=== PATIENT | female | born 1970 | race Caucasian/White ===

== ENCOUNTER 2018-05-09 14:21 | Emergency (ER) | payer SELFPAY ==
[~2018-05-09] VITALS: Ht 157.5 cm; Wt 52.2 kg
[2018-05-09 14:24] VITALS: BP 133/80
[2018-05-09] MEDS ORDERED: ACETAMINOPHEN 325 MG TAB PO ONE (14:25)
--- NOTE | 2018-05-09 14:30 | NUR ---
PT TAKEN TO BED 1.
[2018-05-09] MEDS ORDERED: ACETAMINOPHEN 325 MG TAB ONE (14:31)
--- NOTE | 2018-05-09 14:46 | NUR ---
PT COMES TO ER WITH MULTIPLE COMPLIANTS, SOB THAT STARTED 2 DAYS AGO. DENIES CHEST PAIN AT THIS TIME. PT EMOTIONAL, CRYING, RESTLESS IN BED, AFRAID TO HAVE STAFF "STICK NEEDLE" VERBALIZES ANXIETY , SOB MORE WITH MINIAL EXERTION. PT TACHYPNIC AT 28/MIN, COARSE LUNG SOUNDS TO RLL. PT REPORTS FEVERS/CHILLS. NO N/V/D. ALSO REPORTS LOWER BACK PAIN, WITH NO RECENT INJURY. DENIES NUMBNESS/TINGLING. SKIN W/D/I.
[2018-05-09] MEDS ORDERED: methylPREDNISolone SS 125 MG/2 ML VIAL IVP ONE (15:00)
[2018-05-09] MEDS ORDERED: IPRATROPIUM 0.02% 0.5 MG/2.5 ML NEBU INH ONE ×3 (15:00→15:15)
[2018-05-09] MEDS ORDERED: ALBUTEROL 0.083% 2.5 MG/3 ML NEBU INH ONE ×3 (15:00→15:15)
[2018-05-09] MEDS ORDERED: AZITHROMYCIN 500 MG in DEXTROSE 5% 250 ML IV ONE (15:00)
[2018-05-09] MEDS ORDERED: cefTRIAXone 1,000 MG in DEXT 5% MINI-BAG PLUS 50 ML IV ONE (15:00)
[2018-05-09] MEDS ORDERED: cefTRIAXone 1,000 MG VIAL ONE (15:20)
[2018-05-09] MEDS ORDERED: AZITHROMYCIN 500 MG INJ VIAL IV ONE (15:20)
[2018-05-09 15:37] LABS: HEMATOCRIT 24.6 % (36-48); HEMOGLOBIN 7.5 g/dL (12.0-16.0); MEAN CORPUSCULAR HEMOGLOBIN 19 pg (27-31); MEAN CORPUSCULAR HGB CONC 30 g/dL (33-37); MEAN CORPUSCULAR VOLUME 63.9 fL (80-94); PLATELET COUNT (AUTO) 164 K/uL (140-450); RED BLOOD CELL COUNT(AUTO) 3.86 MIL/uL (4.20-5.40); RED CELL DISTRIBUTION WIDTH 18.7 % (11.6-13.7); WHITE BLOOD COUNT (AUTO) 13.2 K/uL (4.8-10.8)
[2018-05-09 16:02] LABS: ANION GAP 15.2 (8-16); CARBON DIOXIDE 23.5 mmol/L (21-32); CREATININE 0.8 mg/dL (0.6-1.3); POTASSIUM 3.7 mmol/L (3.5-5.1)
[2018-05-09 16:11] LABS: ALBUMIN 3.2 g/dL (3.4-5.0); TOTAL BILIRUBIN 0.5 mg/dL (0.0-1.0)
[2018-05-09 16:12] LABS: EOSINOPHILS % (MANUAL) 3 % (0-4); LYMPHOCYTES % (MANUAL) 3 % (20-46); MONOCYTES % (MANUAL) 1 % (5-12)
--- NOTE | 2018-05-09 16:36 | NUR ---
IV ANBX INFUSING WELL TO RT AC, INFUSING WELL. PT REPORTS MILD RELIEF AFTER MEDS GIVEN.
--- NOTE | 2018-05-09 17:59 | NUR ---
PT WITH EYES CLOSED, IN NAD. RESP EVEN AND UNLABORED. DENIES ANY PAIN, SOB AT THIS TIME. VSS, WILL CONT TO MONITOR FOR ANY ADVERSE SIDE EFFECTS.
[2018-05-09 18:23] VITALS: BP 129/77
== END 2018-05-09 18:23 | disposition home or self-care (01) ==
LOC: MED 14:21
DX: J45.901 Unspecified asthma with (acute) exacerbation (principal); F12.90 Cannabis use, unspecified, uncomplicated; R10.2 Pelvic and perineal pain; D64.9 Anemia, unspecified
CPT/HCPCS: 36600; 71045; 80053; 82803; 84484; 85025; 87040; 87186; 93005; 94640; 96365; 96367; 96375; 99285; J0456; J0696; J2930; J7613; J7644

== ENCOUNTER 2018-08-14 18:25 | Emergency (ER) | payer MEDICAID ==
[~2018-08-14] VITALS: Ht 157.5 cm; Wt 54.4 kg
[2018-08-14 18:33] VITALS: BP 127/80
--- NOTE | 2018-08-14 18:40 | NUR ---
48 YO F BIB SELF W/ C/O ASTHMA EXACERBATION X TODAY. PT TOOK 2 PUFFS OF ALBUTEROL INHALER 2 HOURS AGO W/O RELIEF. PT PRESENTS W/ BL INSPIRATORY AND EXPIRATORY WHEEZING. REPORTS NAUSEA, DENIES VOMITING. REPORTS INCREASE PHLEGM. PT O2 SAT 100% AT THIS TIME. NO SWELLING OF TH FACE NOTED, NO ACUTE REPIRATORY DISTRESS AT THIS TIME. ER MD NOTIFIED OF PT STATUS. HX ASTHMA, C-SEC, OVARIAN CYST ON LEFT OVARY RX ALBUTEROL, NEBULIZER
--- NOTE | 2018-08-14 18:46 | NUR ---
DR PAREDES AT BED SIDE FOR PT EVALUATION
[2018-08-14] MEDS ORDERED: methylPREDNISolone SS 125 MG in WATER STERILE 2 ML IM ONE (18:50)
[2018-08-14] MEDS ORDERED: ALBUTEROL SULFATE/IPRATROPIU 3 ML SOL IH ONE (18:50)
[2018-08-14] MEDS ORDERED: CLINDAMYCIN 600 MG/4 ML VIAL IM ONE (18:50)
--- NOTE | 2018-08-14 19:15 | NUR ---
pt sitting up in bed, vitals stable. recieving a breathing treatment, tolerated well. md aware of status.
[2018-08-14] MEDS ORDERED: ACETAMINOPHEN EXTRA STRENGTH 500 MG TAB PO ONE (19:20)
[2018-08-14 19:35] VITALS: BP 102/56
--- NOTE | 2018-08-14 19:35 | NUR ---
Patient discharged with v/s stable. Written and verbal after care instructions given and explained. Patient alert, oriented and verbalized understanding of instructions. Ambulatory with steady gait. All questions addressed prior to discharge. ID band removed. Patient advised to follow up with PMD. Rx of Azithromycin, prednisone, promethazine, and albuterol were given. Patient educated on indication of medication including possible reaction and side effects. Opportunity to ask questions provided and answered.
== END 2018-08-14 19:35 | disposition home or self-care (01) ==
LOC: MED 18:25
DX: J45.901 Unspecified asthma with (acute) exacerbation (principal)
CPT/HCPCS: 94640; 96372; 99284; J2930; J3490; J7620

== ENCOUNTER 2018-12-02 18:36 | Emergency (ER) | payer MEDICAID ==
[~2018-12-02] VITALS: Ht 165.1 cm; Wt 53.7 kg
[2018-12-02 18:51] VITALS: BP 127/88
[2018-12-02] MEDS ORDERED: ALBUTEROL SULFATE/IPRATROPIU 3 ML SOL IH ONE ×2 (19:00→19:45)
--- NOTE | 2018-12-02 19:04 | NUR ---
RT AT BEDSIDE AT THIS TIME.
--- NOTE | 2018-12-02 19:15 | NUR ---
PT BIB for asthma attack. PT is currently recieving breathing TX, RR symmetrical, non labored, with inspiratory and expiratory wheezes present throughout. PT reports CP at 6/10 that she believes is from her cough. PT states green sputum from productive cough x2 days. ER MD to see PT. Safety precautions in place. Will continue to monitor. MedHx: asthma RX: montekulast, albuterol
[2018-12-02] MEDS ORDERED: methylPREDNISolone SS 125 MG/2 ML VIAL IM ONE (19:45)
[2018-12-02 20:16] LABS: BASOPHILS # (AUTO) 0.1 K/uL (0.00-0.22); BASOPHILS % (AUTO) 0.5 % (0.0-2.0); EOSINOPHILS # (AUTO) 0.4 K/uL (0-0.4); EOSINOPHILS % (AUTO) 3.3 % (0.0-4.0); HEMATOCRIT 26.3 % (36-48); HEMOGLOBIN 7.5 g/dL (12.0-16.0); LYMPHOCYTES # (AUTO) 3.2 K/uL (2.5-16.5); LYMPHOCYTES % (AUTO) 27.9 % (20.5-51.1); MEAN CORPUSCULAR HEMOGLOBIN 19 pg (27-31); MEAN CORPUSCULAR HGB CONC 29 g/dL (33-37); MEAN CORPUSCULAR VOLUME 67.6 fL (80-94); MONOCYTES # (AUTO) 1.4 K/uL (0.8-1.0); MONOCYTES % (AUTO) 11.9 % (1.7-9.3); NEUTROPHILS # (AUTO) 6.5 K/uL (1.8-7.7); NEUTROPHILS % (AUTO) 56.4 % (42.2-75.2); PLATELET COUNT (AUTO) 239 K/uL (140-450); RED BLOOD CELL COUNT(AUTO) 3.89 MIL/uL (4.20-5.40); RED CELL DISTRIBUTION WIDTH 19.3 % (11.6-13.7); WHITE BLOOD COUNT (AUTO) 11.5 K/uL (4.8-10.8)
[2018-12-02 20:49] LABS: ANION GAP 10.6 (8-16); CARBON DIOXIDE 28.8 mmol/L (21-32); CREATININE 1.1 mg/dL (0.6-1.3); POTASSIUM 3.4 mmol/L (3.5-5.1); TOTAL BILIRUBIN 0.1 mg/dL (0.0-1.0)
[2018-12-02 20:50] LABS: ALBUMIN 3.1 g/dL (3.4-5.0)
[2018-12-02 21:00] VITALS: BP 131/82
--- NOTE | 2018-12-02 21:00 | NUR ---
Patient discharged with v/s stable. Written and verbal after care instructions given and explained. Patient alert, oriented and verbalized understanding of instructions. Ambulatory with steady gait. All questions addressed prior to discharge. ID band removed. Patient advised to follow up with PMD. Rx of prednisone and albuterol given. Patient educated on indication of medication including possible reaction and side effects. Opportunity to ask questions provided and answered.
== END 2018-12-02 21:00 | disposition home or self-care (01) ==
LOC: MED 18:36
DX: J45.901 Unspecified asthma with (acute) exacerbation (principal); D64.9 Anemia, unspecified; E87.6 Hypokalemia
CPT/HCPCS: 36415; 71045; 80053; 85025; 94640; 94760; 96372; 99284; J2930; J7620

== ENCOUNTER 2018-12-30 19:38 | Inpatient (IN) | payer MEDICAID ==
[~2018-12-30] VITALS: Ht 157.5 cm; Wt 54.4 kg
[2018-12-30 19:42] VITALS: BP 136/110
--- NOTE | 2018-12-30 19:49 | NUR ---
PT TAKEN TO BED 5
--- NOTE | 2018-12-30 19:50 | NUR ---
C/O ASTHMA EXACERBATION X1 DAY, WITH AUDIBLE WHEEZING. TOOK INHALER AND SINGULAIR WITH LITTLE RELIEF. C/O COUGH X1 DAY AND RESOLVED FEVER. SPO2 100%, RR 24. PT DENIES N/V/D; SKIN IS PINK/WARM/DRY; AAOX4 WITH EVEN AND STEADY GAIT; PATIENT STATES PAIN OF 7/10 AT THIS TIME; VSS; PATIENT POSITIONED FOR COMFORT; HOB ELEVATED; BEDRAILS UP X2; BED DOWN. ER MD MADE AWARE OF PT STATUS.
[2018-12-30] MEDS ORDERED: ALBUTEROL 0.083% 2.5 MG/3 ML NEBU INH ONE (20:10)
--- NOTE | 2018-12-30 20:20 | NUR ---
Respiratory Therapist at bedside for respiratory intervention.
[2018-12-30 20:39] LABS: BASOPHILS # (AUTO) 0.1 K/uL (0.00-0.22); BASOPHILS % (AUTO) 1.3 % (0.0-2.0); EOSINOPHILS # (AUTO) 0.7 K/uL (0-0.4); EOSINOPHILS % (AUTO) 7.3 % (0.0-4.0); HEMATOCRIT 24.6 % (36-48); HEMOGLOBIN 7.2 g/dL (12.0-16.0); LYMPHOCYTES # (AUTO) 2.2 K/uL (2.5-16.5); LYMPHOCYTES % (AUTO) 23.5 % (20.5-51.1); MEAN CORPUSCULAR HEMOGLOBIN 20 pg (27-31); MEAN CORPUSCULAR HGB CONC 29 g/dL (33-37); MONOCYTES # (AUTO) 0.7 K/uL (0.8-1.0); MONOCYTES % (AUTO) 7.4 % (1.7-9.3); NEUTROPHILS # (AUTO) 5.8 K/uL (1.8-7.7); NEUTROPHILS % (AUTO) 60.5 % (42.2-75.2); PLATELET COUNT (AUTO) 229 K/uL (140-450); RED BLOOD CELL COUNT(AUTO) 3.67 MIL/uL (4.20-5.40); RED CELL DISTRIBUTION WIDTH 18.2 % (11.6-13.7); WHITE BLOOD COUNT (AUTO) 9.5 K/uL (4.8-10.8)
[2018-12-30] MEDS ORDERED: ACETAMINOPHEN 325 MG TAB PO PRN (21:20)
[2018-12-30] MEDS ORDERED: HYDROcodone/APAP 7.5/325 MG 1 TAB PO PRN (21:20)
[2018-12-30] MEDS ORDERED: DOCUSATE SODIUM 100 MG GELCAP PO PRN (21:20)
[2018-12-30] MEDS ORDERED: MORPHINE SULFATE 4 MG/ML SYR IVP PRN (21:20)
[2018-12-30] MEDS ORDERED: ALBUTEROL SULFATE/IPRATROPIU 3 ML SOL IH PRN (21:20)
[2018-12-30] MEDS ORDERED: ONDANSETRON 4 MG/2 ML VIAL IM/IVP PRN (21:20)
[2018-12-30 21:51] LABS: PROTHROMBIN TIME 9.7 secs (10.8-13.4)
--- NOTE | 2018-12-30 21:54 | NUR ---
Pt transferred to [address] WITH LIZBETH GAINES.
--- NOTE | 2018-12-30 22:10 | NUR ---
RECEIVED PT FROM ER VIA FRANCISCO., AWAKE, AMBULATORY AND ALERT X 4. PT SAYS SHE IS DEPRESSED. PT SAID SHE HAD MENSES, HEAVY AND CC: ASTHMA, SOB, LIGHTHEADEDNESS X 1 DAY. POC DISCUSSED W/ PT. SKIN ASSESSMENT DONE. INTACT. PLACED IN LOW BED POSITION. ORIENTED TO UNIT. WILL CONTINUE TO MONITOR
[2018-12-30] MEDS ORDERED: NITROGLYCERIN 0.4 MG TAB SL ONE (22:50)
--- NOTE | 2018-12-30 22:50 | NUR ---
NO CHEST PAIN COMPLAINT BY PT NITROGLECERIN ORDER FOR ONCE PRN NOT GIVEN. INFORMED
[2018-12-30] MEDS ORDERED: MONT10TA35 PO (22:57)
[2018-12-30] MEDS ORDERED: ALBU0.0912 IH (22:57)
[2018-12-30] MEDS ORDERED: MOME0.051 NS (22:57)
[2018-12-30] MEDS ORDERED: AZITHROMYCIN 250 MG TAB PO SCH (23:30)
--- NOTE | 2018-12-31 | NUR ---
STARTED MEDS AND PT TOLERATED WELL, PT TRYING TO GET SOME SLEEP.
[2018-12-31 00:20] LABS: ANION GAP 13.4 (8-16); CARBON DIOXIDE 26.1 mmol/L (21-32); CREATININE 0.7 mg/dL (0.6-1.3); POTASSIUM 3.5 mmol/L (3.5-5.1)
[2018-12-31 00:32] LABS: CHOL/HDL RATIO 1.7 (1-4.5); PHOSPHORUS 2.8 mg/dL (2.5-4.9); THYROID STIMULATING HORMONE 0.63 uIU/mL (0.34-3.74)
[2018-12-31] MEDS ORDERED: cefTRIAXone 1,000 MG VIAL ONE (00:44)
[2018-12-31] MEDS: NACL 0.9% 1,000 ML IV SCH ×3 (00:53→17:18)
[2018-12-31 01:36] LABS: ALBUMIN 3.2 g/dL (3.4-5.0); BILIRUBIN,DIRECT 0.1 mg/dL (0.0-0.3); TOTAL BILIRUBIN 0.2 mg/dL (0.0-1.0)
[2018-12-31] MEDS ORDERED: SODIUM FERRIC GLUCONATE 125 MG in NACL 0.9% 100 ML IV SCH (02:00)
[2018-12-31] MEDS ORDERED: SODIUM FERRIC GLUCONATE 12.5 MG/ML AMP IV ONE (02:10)
[2018-12-31 04:00] VITALS: BP 122/66
[2018-12-31 04:47] LABS: ANION GAP 6.1 (8-16); CARBON DIOXIDE 27.5 mmol/L (21-32); CREATININE 0.7 mg/dL (0.6-1.3); POTASSIUM 3.6 mmol/L (3.5-5.1)
[2018-12-31 04:52] LABS: MAGNESIUM 2.2 mg/dL (1.8-2.4); PHOSPHORUS 2.8 mg/dL (2.5-4.9)
--- NOTE | 2018-12-31 05:40 | NUR ---
TRANSABDOMINAL USD-ROUTINE IS TO BE DONE PER FARMWORKER BULBS BY AM TECH -ROUTINE. AROUND 6:[address] CASTANON AWARE. NEXT NURSE TO INFORM THE RESULT OF THE PREG. TEST. BEFORE CHEST X-RAY TO BE DONE. WILL ENDORSE
--- NOTE | 2018-12-31 05:48 | NUR ---
PT REFUSED AT 9 FOR A CHEST X-RAY TO BE DONE. 3X, AND LASTLY NOW AT THIS TIME [id number].ICVRx WAS HERE 3X RESPECTIVELY TO TALK TO THE PT. PT SAID THAT SHE WILL SIGN THE CONSENT FORM FOR THE CHEST X-RAY UNTIL THE TEST (URINE) RESULT IS NEGATIVE. DR. KINA ALMODOVAR.
[2018-12-31 06:05] LABS: BASOPHILS # (AUTO) 0.1 K/uL (0.00-0.22); BASOPHILS % (AUTO) 0.7 % (0.0-2.0); EOSINOPHILS # (AUTO) 0.7 K/uL (0-0.4); EOSINOPHILS % (AUTO) 8.6 % (0.0-4.0); HEMATOCRIT 22.2 % (36-48); LYMPHOCYTES # (AUTO) 2.7 K/uL (2.5-16.5); LYMPHOCYTES % (AUTO) 33.6 % (20.5-51.1); MEAN CORPUSCULAR HEMOGLOBIN 19 pg (27-31); MEAN CORPUSCULAR HGB CONC 29 g/dL (33-37); MEAN CORPUSCULAR VOLUME 67.1 fL (80-94); MONOCYTES # (AUTO) 0.9 K/uL (0.8-1.0); MONOCYTES % (AUTO) 11.8 % (1.7-9.3); NEUTROPHILS # (AUTO) 3.6 K/uL (1.8-7.7); NEUTROPHILS % (AUTO) 45.3 % (42.2-75.2); PLATELET COUNT (AUTO) 202 K/uL (140-450); RED BLOOD CELL COUNT(AUTO) 3.31 MIL/uL (4.20-5.40); RED CELL DISTRIBUTION WIDTH 18.4 % (11.6-13.7); WHITE BLOOD COUNT (AUTO) 7.9 K/uL (4.8-10.8)
[2018-12-31] MEDS: PANTOPRAZOLE 40 MG TABEC PO SCH (06:30)
[2018-12-31 07:00] LABS: HEMOGLOBIN 6.4 g/dL (12.0-16.0)
--- NOTE | 2018-12-31 07:15 | NUR ---
INFORMED DR. FERNANDEZ THAT PT HAS A CRITICAL RESULT: HGB LEVEL OF 6.4 MG. NO ORDERS AT THIS TIME. WILL ENDORSE TO NEXT SHIFT
--- NOTE | 2018-12-31 07:30 | NUR ---
ENDORSED TO NEXT SHIFT NURSE, PT HAS LOW HEMOGLOBIN LEVEL AND AWARE. PT SLEEPING. PT HAS HEAVY MENSES W/MINIMAL AMOUNT OF BLOOD IN THE URINE. SENT URINE TO LAB AROUND 6AM. AWAITING RESULT, ALSO INFORM RESULT OF PREG TEST. ALSO AWAITING TRANSVAG USD AND CHEST X-RAY TO BE TAKEN PENDING PREG TEST. PT NO SOB, NOT IN DISTRESS.
[2018-12-31 07:32] LABS: BARBITURATE, URINE NEG. ng/ml (NEG <=200); BENZODIAZEPINE, URINE NEG. ng/mL (NEG <=200); CANNABINOID, URINE POS. ng/mL (NEG <=50); COCAINE, URINE NEG. ng/mL (NEG <=300); OPIATE, URINE NEG. ng/mL (NEG <=2000); PHENCYCLIDINE SCREEN,URINE NEG. ng/mL (NEG <=25)
--- NOTE | 2018-12-31 07:35 | NUR ---
RECEIVED PT FROM WATCH REPAIRER NURSE, PT IS AWAKE AND LYING ON THE BED WITH SIDE RAILS UP AND CALL LIGHT WITHIN REACH, PT HAS AN IV LINE ON THE LEFT FA G. 20 WITH NS AT 100ML/HR, INFUSING, PT DENIES PAIN AND NO SOB NOTED. WILL CONTINUE TO MONITOR PT.
--- NOTE | 2018-12-31 07:59 | NUR ---
PATIENT HAS BEEN SCREENED AND CATEGORIZED LOW NUTRITION RISK. PATIENT WILL BE SEEN WITHIN 7 DAYS OF ADMISSION. 01/06/[address]
[2018-12-31 08:00] VITALS: BP 105/67
--- NOTE | 2018-12-31 08:26 | NUR ---
PT SIGNED CONSENT FOR THE BLOOD TRANSFUSION, PT VERBALIZED UNDERSTANDING FOR THE NEED FOR A TRANSFUSION AND VERBALIZED THAT THE MD INFORMED HER.
[2018-12-31] MEDS: METOPROLOL 25 MG TAB PO SCH ×2 (09:00→21:00)
[2018-12-31] MEDS: LISINOPRIL 5 MG TAB PO SCH (09:00)
[2018-12-31] MEDS: LACTOBACILLUS RHAMNOSUS GG 1 EACH CAP PO SCH (09:00)
[2018-12-31] MEDS ORDERED: PANTOPRAZOLE 40 MG TABEC PO SCH (09:00)
--- NOTE | 2018-12-31 09:00 | NUR ---
PT IS AWAKE AND VITAL SIGNS TAKEN AND IS WITHIN NORMAL LIMIT. NO SIGN OF DISTRESS NOTED AND WILL MONITOR PT.
[2018-12-31 09:15] LABS: APPEARANCE,URINE CLEAR (CLEAR); BILIRUBIN,URINE NEGATIVE (NEGATIVE); BLOOD, URINE NEGATIVE (NEGATIVE); COLOR,URINE YELLOW (YELLOW); LEUKOCYTE ESTERASE ,URINE NEGATIVE (NEGATIVE); NITRITE, URINE NEGATIVE (NEGATIVE); UGLUCOSE NEGATIVE (NEGATIVE)
--- NOTE | 2018-12-31 09:46 | NUR ---
RECEIVED PATIENT ON ROOM AIR, PULSE OX SAT 100%. PRN BREATHING TREATMENT ADMINISTERED PER WHEEZING. TOLERATED TX WELL, NO ADVERSE SIDE EFFECTS. GREAT IMPROVEMENT POST TX. NO RESPIRATORY DISTRESS NOTED AT THIS TIME. WILL CONTINUE TO MONITOR.
[2018-12-31] MEDS ORDERED: methylPREDNISolone SS 125 MG/2 ML VIAL IVP SCH (09:48)
[2018-12-31] MEDS: ASPIRIN 81 MG TAB.CHEW PO SCH (10:50)
[2018-12-31] MEDS: ACETAMINOPHEN 325 MG TAB PO SCH ×3 (10:51→16:00)
[2018-12-31] MEDS: MONTELUKAST SODIUM 10 MG TAB PO SCH (10:52)
[2018-12-31] MEDS: FUROSEMIDE 20 MG TAB PO SCH ×2 (11:07→17:32)
[2018-12-31 12:00] VITALS: BP 124/77
--- NOTE | 2018-12-31 14:05 | NUR ---
BLOOD TRANSFUSION WAS STARTED TO PT NOW, INITIAL V/S TAKEN. WILL MONITOR PT.
--- NOTE | 2018-12-31 14:23 | NUR ---
DR. ABRAMS CAME TO THE PT'S ROOM AND TALKING TO PT AND PT IS RESPONDING APPROPRIATELY TO MD.
[2018-12-31] MEDS: ALBUTEROL SULFATE/IPRATROPIU 3 ML SOL IH SCH ×2 (14:26→19:00)
[2018-12-31 16:00] VITALS: BP 115/69
--- NOTE | 2018-12-31 17:30 | NUR ---
BLOOD TRANSFUSION WS FINISHED NOW AND VITAL SIGNS TAKEN AND IS WITHIN NORMAL LIMIT, TEMP IS NORMAL WELL, PT DENIES ANY PAIN, NO SOB NOTED. DR. FRANKLIN INFORMED.
--- NOTE | 2018-12-31 19:35 | NUR ---
RECEIVED REPORT FROM DAY SHIFT NURSE. PT LYING IN BED. AAOX4. NO C/O PAIN OR SOB. ON ROOM AIR. IV TO LEFT FA #20G, NS AT 100 ML/HR INFUSING WELL. DISCUSSED PLAN OF CARE, PT VERBALIZED UNDERSTANDING. CALL LIGHT WITHIN REACH.
--- NOTE | 2018-12-31 19:45 | NUR ---
ENDORSED PT TO [employer] NURSEDAISY FOR CONTINUITY OF CARE, PT IS STABLE AT THIS TIME.
[2018-12-31 20:00] VITALS: BP 112/65
[2018-12-31 20:14] LABS: BASOPHILS % (AUTO) 0.2 % (0.0-2.0); HEMATOCRIT 26.6 % (36-48); LYMPHOCYTES # (AUTO) 0.4 K/uL (2.5-16.5); LYMPHOCYTES % (AUTO) 7.2 % (20.5-51.1); MEAN CORPUSCULAR HEMOGLOBIN 21 pg (27-31); MEAN CORPUSCULAR HGB CONC 30 g/dL (33-37); MONOCYTES % (AUTO) 0.6 % (1.7-9.3); NEUTROPHILS # (AUTO) 5.7 K/uL (1.8-7.7); PLATELET COUNT (AUTO) 226 K/uL (140-450); RED BLOOD CELL COUNT(AUTO) 3.81 MIL/uL (4.20-5.40); WHITE BLOOD COUNT (AUTO) 6.2 K/uL (4.8-10.8)
[2018-12-31] MEDS ORDERED: AZITHROMYCIN 250 MG TAB PO SCH (21:00)
[2018-12-31] MEDS ORDERED: ATORVASTATIN 20 MG TAB PO SCH (21:00)
--- NOTE | 2018-12-31 21:00 | NUR ---
PT REFUSED LOPRESSOR AND LIPITOR. EXPLAINED TO PT THE RISK AND BENEFITS. PT VERBALIZED UNDERSTANDING. PT ASKED FOR SNACK, SNACK PROVIDED.
--- NOTE | 2018-12-31 23:30 | NUR ---
PT SLEEPING BUT EASILY AROUSABLE. RESP EVEN AND UNLABORED. NO S/S OF PAIN OR DISCOMFORT. CALL LIGHT WITHIN REACH.
[2019-01-01] VITALS: BP 123/65
--- NOTE | 2019-01-01 02:00 | NUR ---
PT SLEEPING. NO S/S OF PAIN OR SOB. IVF INFUSING WELL.
[2019-01-01] MEDS: NACL 0.9% 1,000 ML IV SCH (03:18)
--- NOTE | 2019-01-01 03:40 | NUR ---
PT SLEEPING BUT WAKES EASILY. NO S/S OF RESP DISTRESS NOTED.
[2019-01-01 04:00] VITALS: BP 120/66
[2019-01-01] MEDS ORDERED: methylPREDNISolone SS 125 MG/2 ML VIAL IVP SCH (05:00)
[2019-01-01] MEDS: PANTOPRAZOLE 40 MG TABEC PO SCH (05:39)
--- NOTE | 2019-01-01 05:40 | NUR ---
DUE MEDS GIVEN. PT TOLERATED WELL. NO C/O PAIN OR DISCOMFORT NOTED.
[2019-01-01 06:18] LABS: T4 (THYROXINE) 5.8 ug/dL (4.5-12.0)
--- NOTE | 2019-01-01 07:10 | NUR ---
ENDORSED PT TO DAY SHIFT NURSE. PT IN STABLE CONDITION.
--- NOTE | 2019-01-01 07:19 | NUR ---
RECEIVED REPORT FROM CONE WINDER NURSE. PT SLEEPING IN BED. AAOX4. NO SIGNS PAIN OR SOB. ON ROOM AIR. IV TO LEFT FA #20G, NS AT 100 ML/HR INFUSING WELL. PLAN OF CARE TO BE DISCUSSED WITH PT. CALL LIGHT WITHIN REACH. BED IN LOW POSITION.
[2019-01-01] MEDS ORDERED: FERR325E14 PO (07:35)
[2019-01-01] MEDS ORDERED: PRED10TA5 PO (07:35)
[2019-01-01] MEDS ORDERED: IBUP-2213 PO (07:35)
[2019-01-01 08:00] VITALS: BP 140/83
[2019-01-01] MEDS: ALBUTEROL SULFATE/IPRATROPIU 3 ML SOL IH SCH (08:10)
--- NOTE | 2019-01-01 08:20 | NUR ---
RECEIVED PATIENT ON ROOM AIR, PULSE OX SAT 97%. SCHEDULED BREATHING TREATMENT ADMINISTERED. TOLERATED TX WELL, NO ADVERSE SIDE EFFECTS. NO RESPIRATORY DISTRESS NOTED. WILL CONTINUE TO MONITOR .
[2019-01-01] MEDS ORDERED: ASCO500T45 PO (08:22)
[2019-01-01 08:26] LABS: FOLIC ACID 13.9 ng/mL (>3.0)
[2019-01-01] MEDS: METOPROLOL 25 MG TAB PO SCH (09:00)
[2019-01-01] MEDS: LISINOPRIL 5 MG TAB PO SCH (09:00)
[2019-01-01] MEDS: LACTOBACILLUS RHAMNOSUS GG 1 EACH CAP PO SCH (09:08)
[2019-01-01] MEDS: MONTELUKAST SODIUM 10 MG TAB PO SCH (09:09)
[2019-01-01] MEDS: ASPIRIN 81 MG TAB.CHEW PO SCH (09:09)
--- NOTE | 2019-01-01 09:12 | NUR ---
ADMINISTERED SCHEDULED MEDS TO PT. PT TOLERATED THEM WELL. PT REFUSED ZESTRIL AND LOPRESSOR MEDS. ALL OTHER MEDS GIVEN. ALL NEEDS MET AT THIS TIME. WILL CONTINUE TO ROUND FREQUENTLY AND WILL GET DISCHARGE PAPERWORK FOR PT TO SIGN.
--- NOTE | 2019-01-01 11:28 | NUR ---
PT RESTING IN BED WATCHING TV. NO COMPLAINTS OF PAIN. BED IN LOW POSITION, CALL LIGHT WITHIN REACH. PT AWAITING LUNCH MEAL SO SHE CAN BE DISCHARGED.
[2019-01-01 12:00] VITALS: BP 131/80
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
--- NOTE | 2019-01-01 13:10 | NUR ---
PATIENT DISCHARGED. LEAVING UNIT AT THIS TIME.
[2019-01-02] MEDS ORDERED: methylPREDNISolone SS 40 MG/ML VIAL IVP SCH (05:00)
[2019-01-03] MEDS ORDERED: methylPREDNISolone SS 40 MG/ML VIAL IVP SCH (09:00)
== END 2019-01-01 13:10 | disposition home or self-care (01) | DRG 243 ==
LOC: MED 19:38 → MTU 21:25
PROVIDERS: ADMIT General Practice; ATTEND General Practice
PROC: 30233N1 Transfusion of Nonautologous Red Blood Cells into Peripheral Vein, Percutaneous Approach (ICD-10-PCS; principal; 2018-12-31)
DX: K21.9 Gastro-esophageal reflux disease without esophagitis (principal); E44.0 Moderate protein-calorie malnutrition; J45.901 Unspecified asthma with (acute) exacerbation; D50.9 Iron deficiency anemia, unspecified; F32.9 Major depressive disorder, single episode, unspecified; F19.10 Other psychoactive substance abuse, uncomplicated; N39.0 Urinary tract infection, site not specified; F41.1 Generalized anxiety disorder; M94.0 Chondrocostal junction syndrome [Tietze]; Z68.21 Body mass index [BMI] 21.0-21.9, adult; Z83.6 Family history of other diseases of the respiratory system; H10.10 Acute atopic conjunctivitis, unspecified eye
CPT/HCPCS: 36415; 71045; 80048; 80076; 80305; 81003; 81025; 82150; 82607; 82728; 82746; 83036; 83540; 83605; 83690; 83735; 83880; 84100; 84436; 84443; 84479; 84484; 85025; 85045; 85610; 85730; 86886; 86900; 86901; 86920; 87081; 93005; 94640; 99285; J0696; J2916; J2930; J7030; J7060; J7613; J7620; P9016; P9038; Q0092; Q0163

== ENCOUNTER 2019-06-10 17:10 | Emergency (ER) | payer MEDICAID ==
[~2019-06-10] VITALS: Ht 157.5 cm; Wt 54.5 kg
[~2019-06-10 17:10] MED LIST: ALBU0.0912 IH; ASCO500T45 PO; FERR325E14 PO; IBUP-2213 PO; MOME0.051 NS; MONT10TA35 PO; PRED10TA5 PO
[2019-06-10 17:27] VITALS: BP 113/85
--- NOTE | 2019-06-10 19:15 | NUR ---
NO ANSWER @ 1914, 1919, 1928. PATIENT LEFT WITHOUT BEING SEEN BY DR. SHANNON. NO FURTHER CARE PROVIDED FOR PATIENT.
== END 2019-06-10 19:29 | disposition left against medical advice (07) ==
LOC: MED 17:10
DX: L03.211 Cellulitis of face (principal); Z53.21 Procedure and treatment not carried out due to patient leaving prior to being seen by health care provider

== ENCOUNTER 2019-06-11 01:52 | Emergency (ER) | payer MEDICAID ==
[~2019-06-11] VITALS: Ht 157.5 cm; Wt 54.4 kg
[2019-06-11 02:18] VITALS: BP 129/84
--- NOTE | 2019-06-11 02:18 | NUR ---
FEMALE PT PRESENTS TO ER C/O CHEST PAIN AND SOB THAT STARTED THIS AFTERNOON. BILATERAL WHEEZING UPON EXPIRATION. DR VILLAR AWARE. WILL CONTINUE TO MONITOR. Addendum: 06/11/19 at 0406 by [email or web address] 49 Y/O FEMALE PT PRESENTS TO ER C/O SOB, DYSPNEA THAT STARTED THIS AFTERNOON. AUDITORY BILATERAL EXPIRATORY WHEEZING. RESPIRATIONS 18, O2 SAT 97%. SKIN IS WARM AND DRY, ABLE TO SPEAK IN COMPLETE SENTENCES. DR VILLAR AWARE. WILL CONTINUE TO MONITOR.
[2019-06-11] MEDS ORDERED: ALBUTEROL SULFATE/IPRATROPIU 3 ML SOL IH ONE ×2 (02:20→02:35)
[2019-06-11] MEDS ORDERED: methylPREDNISolone SS 125 MG/2 ML VIAL IM ONE (02:20)
--- NOTE | 2019-06-11 02:25 | NUR ---
RT AT BEDSIDE. PT PLACED ON MASK, RECEIVED BREATHING TREATMENT. WILL CONTINUE TO MONITOR.
--- NOTE | 2019-06-11 02:35 | NUR ---
FIRST BREATHING TREATMENT COMPLETED. WHEEZING REDUCED. DR VILLAR INFORMED. WILL CONTINUE TO MONITOR.
--- NOTE | 2019-06-11 02:46 | NUR ---
SECOND BREATHING TREATMENT ADMINISTERED BY RT. NO AUDIBLE WHEEZES HEARD. SCANT EXPIRATORY WHEEZING ON UPPER BILATERAL LOBES. O2 SAT 98% AT ROOM AIR. RESPIRATIONS 18. NO RESPIRATORY DISTRESS NOTED. WILL CONTINUE TO MONITOR.
[2019-06-11] MEDS ORDERED: BUDESONIDE 0.5 MG/2 ML NEBU INH ONE (02:50)
--- NOTE | 2019-06-11 03:15 | NUR ---
PT DISCHARGED WITH PAPERWORKS. RX KEFLEX, ALBUTEROL, PREDNISONE. EDUCATED PT REGARDING SIDE EFFECTS AND REMAINING COMPLIANT TO REGIMEN. NO SOB/CHEST PAIN UPON DISCHARGE. PT VSS. TOLD PT TO FOLLOW UP WITH PCP AND WHEN TO RETURN TO ER.
[2019-06-11 03:20] VITALS: BP 129/84
== END 2019-06-11 03:15 | disposition home or self-care (01) ==
LOC: MED 01:52
DX: S00.86XA Insect bite (nonvenomous) of other part of head, initial encounter (principal); L08.9 Local infection of the skin and subcutaneous tissue, unspecified; J45.909 Unspecified asthma, uncomplicated; Z79.899 Other long term (current) drug therapy; W57.XXXA Bitten or stung by nonvenomous insect and other nonvenomous arthropods, initial encounter; Y93.89 Activity, other specified; Y92.89 Other specified places as the place of occurrence of the external cause; Y99.8 Other external cause status
CPT/HCPCS: 96372; 99285; J2930; J7620; J7626; 94640

== ENCOUNTER 2019-06-21 20:04 | Emergency (ER) | payer MEDICAID ==
[~2019-06-21] VITALS: Ht 157.5 cm; Wt 53.1 kg
[2019-06-21 20:14] VITALS: BP 140/93
--- NOTE | 2019-06-21 20:50 | NUR ---
PT CAME IN TO ER WITH C/O RIGHT HAND MIDDLE FINGER PAIN S/P BOX FALLING ON IT, +DEFORMITY, PT STATES SHE HEARD SNAP, NO OPEN SKIN, NO REDNESS. PT IS A/OX4. ERMD MADE AWARE OF STATUS, SAFETY MEASURES IN PLACE. CONTINUE TO MONITOR. PMH ASTHMA, ANEMIA
--- NOTE | 2019-06-21 20:52 | NUR ---
Pt ambualted to chair Gonzalez
[2019-06-21] MEDS ORDERED: ACETAMINOPHEN 325 MG TAB PO ONE (21:35)
--- NOTE | 2019-06-21 21:54 | NUR ---
SPLINT APPLIED TO PT R 3RD FINGER, WRAPPED WITH CARMENZA WRAP. +CSM
[2019-06-21 22:07] VITALS: BP 138/86
--- NOTE | 2019-06-21 22:07 | NUR ---
DISCHARGE PAPERS GIVEN TO PT. SPLIINT INTACT, CMS INTACT BEFORE AND AFTER SPLINT APPLIED TO RIGHT 3RD DIGIT. PT STATES 3/10 TOLLERABLE PAIN. RX OF IBUPROFEN GIVEN. SIDE EFFECTS EXPLAINED. INSTRUCTED TO F/U WITH PCP AND WHEN TO RETURN TO ER. PT VERBALLIZED UNDERSTANDIN OF DC INSTRUCTIONS. ALL QUESTIONS ANSWERED.
== END 2019-06-21 22:07 | disposition home or self-care (01) ==
LOC: MED 20:04
DX: M20.011 Mallet finger of right finger(s) (principal); J45.909 Unspecified asthma, uncomplicated; Z79.899 Other long term (current) drug therapy
CPT/HCPCS: 73130; 99283

== ENCOUNTER 2019-08-05 08:36 | Emergency (ER) | payer MEDICAID ==
[~2019-08-05] VITALS: Ht 157.5 cm; Wt 54.4 kg
[2019-08-05 08:40] VITALS: BP 112/67
[2019-08-05] MEDS ORDERED: ALBUTEROL 0.083% 2.5 MG/3 ML NEBU INH ONE (08:45)
[2019-08-05] MEDS ORDERED: NACL 0.9% 1,000 ML IV ONE (08:45)
[2019-08-05] MEDS ORDERED: DEXAMETHASONE 10 MG/ML VIAL IVP ONE (08:45)
[2019-08-05] MEDS ORDERED: EPINEPHrine 1:1000 - 1 MG/ML AMP SUBQ ONE (08:45)
--- NOTE | 2019-08-05 08:58 | NUR ---
[facility] THERAPY AND RESPIRATORY DRUGS GIVEN ORDERED PEAK FLOW METER: before 180 L after 340 L
--- NOTE | 2019-08-05 09:07 | NUR ---
rt at bedside
--- NOTE | 2019-08-05 09:13 | NUR ---
C/O SOB AND ASTHMA EXACERBATION STARTING THIS MORNING, COARSE EXP WHEEZING NOTED THROUGHOUT. DENIES COUGH, URI SYMPTOMS. 96% RA HX ASTHMA
--- NOTE | 2019-08-05 09:41 | NUR ---
PT STATING LESS SOB AFTER THE BREATHING TX FROM RT.
--- NOTE | 2019-08-05 11:04 | NUR ---
WAITING FOR D/C PAPERWORK.
[2019-08-05 11:14] VITALS: BP 123/78
--- NOTE | 2019-08-05 11:14 | NUR ---
Patient discharged with v/s stable. Written and verbal after care instructions given and explained. Patient alert, oriented and verbalized understanding of instructions. Ambulatory with steady gait. All questions addressed prior to discharge. ID band removed. Patient advised to follow up with PMD. Rx of ALBUTEROL AND PREDNISONE given. Patient educated on indication of medication including possible reaction and side effects. Opportunity to ask questions provided and answered.
== END 2019-08-05 11:14 | disposition home or self-care (01) ==
LOC: MED 08:36
DX: J45.901 Unspecified asthma with (acute) exacerbation (principal); Z79.899 Other long term (current) drug therapy
CPT/HCPCS: 71045; 94640; 96372; 96374; 99283; J0171; J1100; J7030; J7613; Q0092; 94644

== ENCOUNTER 2019-09-16 16:28 | Emergency (ER) | payer MEDICAID ==
[~2019-09-16] VITALS: Ht 157.5 cm; Wt 54.4 kg
[2019-09-16 17:04] VITALS: BP 132/56
--- NOTE | 2019-09-16 17:10 | NUR ---
PT PLACED IN BED 7.
[2019-09-16] MEDS ORDERED: predniSONE 20 MG TAB PO ONE (17:25)
[2019-09-16] MEDS ORDERED: ALBUTEROL 0.083% 2.5 MG/3 ML NEBU INH ONE ×2 (17:25→18:20)
[2019-09-16] MEDS ORDERED: IPRATROPIUM 0.02% 0.5 MG/2.5 ML NEBU INH ONE (17:25)
--- NOTE | 2019-09-16 17:30 | NUR ---
PT PRESENTS TO ED WITH C/O SOB X2 DAYS. PT TOOK INHALER 1 HOUR AGO WITH NO RELIEF. O2 SAT 100% ON RA. HX ASTHMA. PT AAO X4, GCS 15, RESPIATIONS EVEN AND UNLABORED, BL LUNG WHEEZS. O2 SAT WNL. SKIN WAMR/PINK/DRY, +PMSC. VS WNL. DR. BECERRIL MADE AWARE OF PT STATUS. WILL CONTINUE TO MONITOR
--- NOTE | 2019-09-16 17:35 | NUR ---
hhn therapy and res[iratory drugs given as ordered
[2019-09-16] MEDS ORDERED: FAMOTIDINE 20 MG TAB PO ONE (18:15)
[2019-09-16] MEDS ORDERED: ACETAMINOPHEN 325 MG TAB PO ONE (18:15)
[2019-09-16 19:13] VITALS: BP 130/63
--- NOTE | 2019-09-16 19:15 | NUR ---
Patient discharged with v/s stable. Written and verbal after care instructions given and explained. Patient alert, oriented and verbalized understanding of instructions. Ambulatory with steady gait. All questions addressed prior to discharge. ID band removed. Patient advised to follow up with PMD. Rx of PREDNISONE & ALBUTEROL given. Patient educated on indication of medication including possible reaction and side effects. Opportunity to ask questions provided and answered.
== END 2019-09-16 19:15 | disposition home or self-care (01) ==
LOC: MED 16:28
DX: J45.901 Unspecified asthma with (acute) exacerbation (principal); Z98.890 Other specified postprocedural states; Z79.899 Other long term (current) drug therapy; Z79.51 Long term (current) use of inhaled steroids
CPT/HCPCS: 94640; 99284; J7512; J7613; J7644

== ENCOUNTER 2020-07-11 11:32 | Emergency (ER) | payer MEDICAID ==
[~2020-07-11] VITALS: Ht 157.5 cm; Wt 57.2 kg
[~2020-07-11 11:32] MED LIST changes: -ASCO500T45 PO; +ASCO500T95 PO
[2020-07-11 11:35] VITALS: BP 117/76
[2020-07-11] MEDS ORDERED: ALBUTEROL SULFATE/IPRATROPIU 3 ML SOL IH ONE (11:40)
[2020-07-11] MEDS ORDERED: predniSONE 20 MG TAB PO ONE (11:40)
--- NOTE | 2020-07-11 11:44 | NUR ---
50 y/o female from home c/o asthma exacerbation that started last night. Audible wheezing heard upon inhalation. Denies chest pain. RR even and unlabored. No accessory muscle use noted. Pt placed on bedside monitor. VSS medhx: asthma
--- NOTE | 2020-07-11 11:45 | NUR ---
Dr Stafford at bedside examining pt
--- NOTE | 2020-07-11 11:46 | NUR ---
RT at bedside for respiratory intervention
[2020-07-11] MEDS ORDERED: ALBUTEROL 0.083% 2.5 MG/3 ML NEBU INH ONE (12:20)
--- NOTE | 2020-07-11 12:22 | NUR ---
RT AT BEDSIDE FOR SECOND TREATMENT
--- NOTE | 2020-07-11 12:43 | NUR ---
LUNCH GIVEN TO PT
[2020-07-11 13:00] VITALS: BP 121/73
--- NOTE | 2020-07-11 13:00 | NUR ---
Patient discharged. Written and verbal after care instructions given and explained. Patient alert, oriented and verbalized understanding of instructions. Ambulatory with steady gait. All questions addressed prior to discharge. ID band removed. Patient advised to follow up with PMD. Rx of PREDNISONE given. Patient educated on indication of medication including possible reaction and side effects. Opportunity to ask questions provided and answered. PT REFUSED VS BEING TAKEN
== END 2020-07-11 13:00 | disposition home or self-care (01) ==
LOC: MED 11:32
DX: J45.901 Unspecified asthma with (acute) exacerbation (principal); D64.9 Anemia, unspecified; Z98.890 Other specified postprocedural states; Z79.899 Other long term (current) drug therapy
CPT/HCPCS: 94640; 99284; J7512; J7613

== ENCOUNTER 2020-09-28 18:02 | Emergency (ER) | payer MEDICAID ==
[~2020-09-28] VITALS: Ht 157.5 cm; Wt 56.7 kg
[2020-09-28 18:08] VITALS: BP 117/77
--- NOTE | 2020-09-28 18:15 | NUR ---
PT AMB TO BED 9.
--- NOTE | 2020-09-28 18:15 | NUR ---
PT C/O SOB, WHEEZINGS X 2 HOURS. PT STATES SHE HAS BEEN HAVING PRODUCTIVE COUGH WITH WHITE PHLEGM FOR DAYS. DENIES ANY PAIN, FEVER, CHILLS, CP, N/V/D. PT ALSO C/O LT EYE PAIN WITH SUBCONJUNCTIVAL HEMORRHAGE AND FOREIGN BODY SENSATION X TODAY. DENIES TRAUMA TO THE LEFT EYE.
[2020-09-28] MEDS ORDERED: TETRACAINE HCL/PF 0.5% OPTH 4 ML BTL OP STA (18:22)
[2020-09-28] MEDS ORDERED: DEXAMETHASONE 10 MG/ML VIAL PO STA (18:22)
[2020-09-28] MEDS ORDERED: FLUORESCEIN OPTH STRIP 1 MG ONE (18:23)
[2020-09-28] MEDS ORDERED: TETRACAINE HCL/PF 0.5% OPTH 4 ML BTL ONE (18:23)
[2020-09-28] MEDS: ALBUTEROL 0.083% 2.5 MG/3 ML NEBU INH ONE ×2 (18:26→18:39)
[2020-09-28] MEDS ORDERED: FLUORESCEIN OPTH STRIP 1 MG OP ONE (18:30)
--- NOTE | 2020-09-28 18:37 | NUR ---
RT IS AT BEDSIDE.
--- NOTE | 2020-09-28 19:14 | NUR ---
REPORT RECEIVED FROM ISABELA NIEVES FOR CONTINUITY OF CARE
--- NOTE | 2020-09-28 19:14 | NUR ---
REPORT GIVEN TO LIZBETH ESTRADA. TX OF CARE AT THIS TIME.
--- NOTE | 2020-09-28 19:30 | NUR ---
ERMD AT BEDSIDE EVALUATING PT
--- NOTE | 2020-09-28 19:30 | NUR ---
Eye exam performed by Dr Lizarraga. Patient tolerated procedure well. Patient assisted to position of comfort after examination.
--- NOTE | 2020-09-28 19:31 | NUR ---
PT REQUESTING CRACKERS AND JUICE, PER ERMD OKAY TO GIVE
[2020-09-28 19:44] VITALS: BP 117/77
--- NOTE | 2020-09-28 19:44 | NUR ---
Patient discharged with v/s stable. Written and verbal after care instructions given and explained. Patient alert, oriented and verbalized understanding of instructions. Ambulatory with steady gait. All questions addressed prior to discharge. ID band removed. Patient advised to follow up with PMD. Rx of ERYTHROMYCIN, ALBUTEROL SULFATE, PEDNISONE, ALBUTEROL AEROSOL, AND AZITHROMYCIN given. Patient educated on indication of medication including possible reaction and side effects. Opportunity to ask questions provided and answered.
== END 2020-09-28 19:44 | disposition home or self-care (01) ==
LOC: MED 18:02
DX: T15.12XA Foreign body in conjunctival sac, left eye, initial encounter (principal); H11.32 Conjunctival hemorrhage, left eye; J45.901 Unspecified asthma with (acute) exacerbation
CPT/HCPCS: 94640; 99284; J1100; J7613

== ENCOUNTER 2021-04-02 12:13 | Emergency (ER) | payer MEDICAID ==
[~2021-04-02] VITALS: Ht 157.5 cm; Wt 70.3 kg
[2021-04-02 12:21] VITALS: BP 111/59
--- NOTE | 2021-04-02 12:23 | NUR ---
Dr. Leo is evaluating the patient in triage room.
--- NOTE | 2021-04-02 12:25 | NUR ---
Patient ambulated to chair C for further care. RN evaluating the patient.
--- NOTE | 2021-04-02 12:35 | NUR ---
50 YEAR OLD FEMALE BIB SELF C/O ASTHAM ATTACK LASTING 3 DAYS. C/O SOB W/ WHEEZING & NONPRODUCTIVE COUGH. DENIES PAIN. RESPIRATORY RATE EVENADN UNLABORED. SKIN WARM, DRY AND INTACT. DOES NOT APPEAR TO BE IN DISTRESS. VSS. PMH: ANEMIA, ASTHMA ALLERGIES: NKA
[2021-04-02] MEDS ORDERED: ALBUTEROL 0.083% 2.5 MG/3 ML NEBU INH ONE (12:45)
[2021-04-02] MEDS ORDERED: ALBUTEROL SULFATE/IPRATROPIU 3 ML SOL IH ONE (12:45)
[2021-04-02] MEDS ORDERED: predniSONE 20 MG TAB PO ONE (12:45)
--- NOTE | 2021-04-02 12:56 | NUR ---
RT [facility] FOR [facility]ATHING TREAT[facility]
[2021-04-02] MEDS ORDERED: ALBU0.0912 IH (13:36)
[2021-04-02] MEDS ORDERED: PRED20TA5 PO (13:38)
[2021-04-02 13:48] VITALS: BP 111/59
--- NOTE | 2021-04-02 13:48 | NUR ---
PT STATES SHE IS FEELING BETTER AFTER BREATHING TREATMENT.
== END 2021-04-02 13:49 | disposition home or self-care (01) ==
LOC: MED 12:13
DX: J45.901 Unspecified asthma with (acute) exacerbation (principal); D64.9 Anemia, unspecified; Z79.899 Other long term (current) drug therapy
CPT/HCPCS: 94640; 99283; J7512; J7613

== ENCOUNTER 2021-07-11 13:51 | Emergency (ER) | payer MEDICAID ==
[~2021-07-11] VITALS: Ht 157.5 cm; Wt 59.0 kg
[~2021-07-11 13:51] MED LIST changes: +PRED20TA5 PO
[2021-07-11 14:09] VITALS: BP 128/84
[2021-07-11] MEDS ORDERED: IBUP-1842 PO (14:58)
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
[2021-07-11] MEDS: IBUPROFEN 600 MG TAB PO ONE ×2 (15:01→15:16)
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
== END 2021-07-11 15:21 | disposition home or self-care (01) ==
LOC: MED 13:51
DX: S61.211A Laceration without foreign body of left index finger without damage to nail, initial encounter (principal); J45.909 Unspecified asthma, uncomplicated; V49.69XA Unspecified car occupant injured in collision with other motor vehicles in traffic accident, initial encounter; Y93.89 Activity, other specified; Y92.89 Other specified places as the place of occurrence of the external cause; Y99.8 Other external cause status
CPT/HCPCS: 12001; 90471; 90715; 99283

== ENCOUNTER 2021-08-27 13:31 | Emergency (ER) | payer MEDICAID ==
[~2021-08-27] VITALS: Ht 157.5 cm; Wt 56.7 kg
[~2021-08-27 13:31] MED LIST changes: +IBUP-1842 PO
[2021-08-27 13:36] VITALS: BP 136/89
[2021-08-27] MEDS ORDERED: ALBUTEROL SULFATE/IPRATROPIU 3 ML SOL IH ONE ×2 (13:45→14:00)
--- NOTE | 2021-08-27 13:53 | NUR ---
rt administering breathing tx
[2021-08-27] MEDS ORDERED: methylPREDNISolone SS 125 MG in WATER STERILE 2 ML IM ONE (13:55)
[2021-08-27] MEDS ORDERED: methylPREDNISolone SS 125 MG/2 ML VIAL ONE (14:02)
[2021-08-27] MEDS ORDERED: WATER STERILE 0 ML MC ONE (14:02)
--- NOTE | 2021-08-27 14:08 | NUR ---
51/F BIB SELF WITH C/O SOB. PATIENT STATES SHE HAS HX OF ASTHMA AND HAS FOUND NO RELIEF WITH INHALER AT HOME. STATING 8/10 CHEST PAIN SINCE THIS MORNING, OXYGEN 99% ON ROOM AIR UPON ARRIVAL TO ED. DENIES N/V/D, URINARY SYMPTOMS, DIZZINESS, FEVER OR CHILLS.
[2021-08-27] MEDS ORDERED: ALBU0.0912 IH (14:30)
[2021-08-27] MEDS ORDERED: PRED20TA5 PO (14:30)
[2021-08-27 14:35] VITALS: BP 136/89
--- NOTE | 2021-08-27 14:35 | NUR ---
Patient discharged with v/s stable. Written and verbal after care instructions given and explained. Patient alert, oriented and verbalized understanding of instructions. Ambulatory with steady gait. All questions addressed prior to discharge. ID band removed. Patient advised to follow up with PMD. Rx of PREDNISONE, PROVENTIL HFA MDI given. Patient educated on indication of medication including possible reaction and side effects. Opportunity to ask questions provided and answered.
[2021-08-31] MEDS ORDERED: ALBU0.0912 IH (15:54)
[2021-08-31] MEDS ORDERED: ASCO500T95 PO (15:54)
[2021-08-31] MEDS ORDERED: FLUT1DSK4 IH (15:54)
[2021-08-31] MEDS ORDERED: FERR325E14 PO (15:54)
[2021-08-31] MEDS ORDERED: MONT10TA35 PO (15:54)
[2021-08-31] MEDS ORDERED: PRED20TA5 PO (15:54)
[2021-09-01] MEDS ORDERED: LEVO500T98 PO (03:33)
== END 2021-08-27 14:35 | disposition home or self-care (01) ==
LOC: MED 13:31
DX: J45.901 Unspecified asthma with (acute) exacerbation (principal); Z79.899 Other long term (current) drug therapy; Z98.890 Other specified postprocedural states
CPT/HCPCS: 94640; 96372; 99283; J2930

== ENCOUNTER 2023-01-22 10:44 | Emergency (ER) | payer MEDICAID ==
[~2023-01-22] VITALS: Ht 160 cm; Wt 55.3 kg
[~2023-01-22 10:44] MED LIST changes: +FLUT1DSK4 IH; -IBUP-1842 PO; -IBUP-2213 PO; +LEVO-481 PO; -MOME0.051 NS; -PRED10TA5 PO
[2023-01-22] MEDS ORDERED: CYCLOBENZAPRINE 10 MG TAB PO ONE (10:50)
[2023-01-22] MEDS ORDERED: KETOROLAC 15 MG/ML VIAL IM ONE (10:50)
--- NOTE | 2023-01-22 10:50 | NUR ---
pt ambulated to bed 01
--- NOTE | 2023-01-22 10:55 | NUR ---
PATIENT PRESENTS TO ED WITH SOB . PT STATES SOB STARTED LAST NIGHT AFTER PULLING WEEDS AT HOME. DENIES N/V/D; SKIN IS PINK/WARM/DRY; AAOX4 WITH EVEN AND STEADY GAIT; WHEEZING IN LUNGS; HR EVEN AND REGULAR; PT DENIES ANY FEVER, CP, SOB, OR COUGH AT THIS TIME; PATIENT STATES PAIN OF 0/10 AT THIS TIME; VSS; PATIENT POSITIONED FOR COMFORT; HOB ELEVATED; BEDRAILS UP X2; BED DOWN. ER MD MADE AWARE OF PT STATUS. PMH: ASTHMA, ANEMIA MEDS: MONTEKULAST, ALBUTEROL, IRON NKA
[2023-01-22 10:56] VITALS: BP 134/83
--- NOTE | 2023-01-22 11:00 | NUR ---
52 y/o female bib self, c/o increased sob and difficulty breathing since last night. pt states she was pulling weeds in the backyard and thinks she may have exacerbated her asthma. states she took albuterol at home with no relief. 100% RA, audible wheezing with inspiratory and expiratory. pmh: asthma, anemia nka med: prednisone, albuterol
[2023-01-22] MEDS ORDERED: IPRATROPIUM 0.02% 0.5 MG/2.5 ML NEBU INH ONE (11:05)
[2023-01-22] MEDS ORDERED: predniSONE 20 MG TAB PO ONE (11:05)
[2023-01-22] MEDS ORDERED: ALBUTEROL 0.083% 2.5 MG/3 ML NEBU INH ONE (11:05)
[2023-01-22] MEDS ORDERED: PRED20TA5 PO (12:24)
[2023-01-22 12:43] VITALS: BP 134/80
--- NOTE | 2023-01-22 12:47 | NUR ---
Patient discharged with v/s stable. Written and verbal after care instructions given and explained. Patient alert, oriented and verbalized understanding of instructions. Ambulatory with steady gait. All questions addressed prior to discharge. ID band removed. Patient advised to follow up with PMD. Rx of PREDNISONE 40 MG PO TABLET given. Patient educated on indication of medication including possible reaction and side effects. Opportunity to ask questions provided and answered.
== END 2023-01-22 12:43 | disposition home or self-care (01) ==
LOC: MED 10:44
DX: J45.901 Unspecified asthma with (acute) exacerbation (principal); Z86.2 Personal history of diseases of the blood and blood-forming organs and certain disorders involving the immune mechanism; Z79.899 Other long term (current) drug therapy; Z79.2 Long term (current) use of antibiotics
CPT/HCPCS: 94640; 99291; J7512; J7613; J7644; 99283